=== PATIENT | female | born 1975 | race American Indian/Alaskan Native ===

== ENCOUNTER 2021-06-17 22:11 | Emergency (ER) | payer MEDICAID ==
[2021-06-17] MEDS ORDERED: metroNIDAZOLE 500 MG TAB PO ONE (23:09)
[2021-06-17] MEDS ORDERED: LIDOCAINE-MPF (1%) 10 MG/1 ML VIAL 5 ML INFILTRATI ONE (23:09)
[2021-06-17] MEDS ORDERED: AZITHROMYCIN 250 MG TAB PO ONE (23:09)
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
[2021-06-17] MEDS ORDERED: HYDROcodone/ACETAMINOPHEN 5-325 MG TAB PO ONE (23:45)
[2021-06-18 02:28] VITALS: BP 152/94
== END 2021-06-18 02:22 | disposition home or self-care (01) ==
LOC: ED 22:11
DX: S76.019A Strain of muscle, fascia and tendon of unspecified hip, initial encounter (principal); T76.21XA Adult sexual abuse, suspected, initial encounter; Y93.89 Activity, other specified; Y92.89 Other specified places as the place of occurrence of the external cause; Y99.8 Other external cause status
CPT/HCPCS: 96372; 99282; J0696; J3490